=== PATIENT | female | born 1970 | race Caucasian/White ===

== ENCOUNTER 2021-09-20 03:51 | Emergency (ER) | payer BC, OTHER ==
[~2021-09-20] VITALS: Ht 157.5 cm; Wt 61.2 kg
--- NOTE | 2021-09-20 03:55 | NUR ---
BIBSELF C/O HIGH BP, FEELING DIZZY, NOT WELL STARTED AROUND 3AM. PLACED IN BED.VITALS CHECKED.
--- NOTE | 2021-09-20 04:12 | NUR ---
XRAY AT BEDSIDE
--- NOTE | 2021-09-20 04:15 | NUR ---
IV CANNULA G18 INSERTED ON RIGHT AC. BLOOD DRAWN AND SENT TO LAB
[2021-09-20 04:21] LABS: BASOPHILS % (AUTO) 0.6 % (0.0-2.0); EOSINOPHILS % (AUTO) 0.2 % (0.0-6.0); HEMATOCRIT 38 % (33-45); HEMOGLOBIN 13.3 g/dL (11.5-14.8); LYMPHOCYTES # (AUTO) 2.2 K/uL (0.8-4.8); LYMPHOCYTES % (AUTO) 29.8 % (20.0-44.0); MEAN CORPUSCULAR HGB CONC 35 g/dl (31.0-36.0); MEAN CORPUSCULAR VOLUME 91 fL (82-100); MONOCYTES # (AUTO) 0.6 K/uL (0.1-1.30); MONOCYTES % (AUTO) 7.8 % (2.0-12.0); NEUTROPHILS # (AUTO) 4.6 K/uL (1.8-8.9); NEUTROPHILS % (AUTO) 61.6 % (43.0-81.0); PLATELET COUNT (AUTO) 297 K/uL (150-450); RED BLOOD CELL COUNT(AUTO) 4.17 MIL/uL (4.0-5.2); WHITE BLOOD COUNT (AUTO) 7.5 K/uL (4.3-11.0)
[2021-09-20 04:31] LABS: CALCIUM, SERUM 8.8 mg/dL (8.5-10.1); CREATININE 0.7 mg/dL (0.6-1.3)
[2021-09-20] MEDS ORDERED: IOHEXOL-350 100 ML VIAL IV ONE (04:41)
[2021-09-20] MEDS ORDERED: IV NS 0.9% 250 ML IV ONE (04:41)
--- NOTE | 2021-09-20 06:34 | NUR ---
called [facility] to f/u with CTA result
--- NOTE | 2021-09-20 07:33 | NUR ---
PT AWAKE, AAOX4, AMBULATORY.
--- NOTE | 2021-09-20 08:03 | NUR ---
AMBULATED TO RESTROOM AND RETURNED TO ROOM. VS STABLE
--- NOTE | 2021-09-20 08:44 | NUR ---
called [facility] regarding CTA results, [employer] sales representative said will find out and let us know
[2021-09-20 09:46] VITALS: BP 128/78
--- NOTE | 2021-09-20 09:46 | NUR ---
Patient discharged to home in stable condition. Written and verbal after care instructions given. Patient verbalizes understanding of instruction.IV removed. Catheter intact and site benign. Pressure and 4x4 applied to site. No bleeding noted.
== END 2021-09-20 09:46 | disposition home or self-care (01) ==
LOC: ER 03:53
DX: R51.9 Headache, unspecified (principal); I10 Essential (primary) hypertension
CPT/HCPCS: 99285; 70496; 85025; 80048; 36415; 70450; J7050; Q9967